=== PATIENT | male | born 1970 | race Caucasian/White ===

== ENCOUNTER 2017-10-25 18:51 | Emergency (ER) | payer SELFPAY ==
[~2017-10-25] VITALS: Ht 185.4 cm; Wt 79.0 kg
[2017-10-25 18:55] VITALS: BP 162/97; PULSE 97; RESP 16; TEMP 100.9; O2SAT 97
[2017-10-25 19:07] VITALS: BP 132/94; PULSE 100; RESP 18; O2SAT 98
--- NOTE | 2017-10-25 19:27 | PD ---
HPI Chief Complaint: Flank/Kidney Pain Time Seen by Provider: 19:19 Travel History International Travel<30 days: No Contact w/Intl Traveler<30days: No Traveled to known affect area: No History of Present Illness HPI This patient complains of a pain in his left side. The small discrete area that sometimes hurts him. He is currently not having pain. There is no pleuritic nature to it. He has had a cough. Denies urinary complaint. No vomiting or diarrhea or abdominal pain. Symptoms severity is mild to moderate. He has low-grade fever. He has had some runny nose and congestion. Duration 3 days. No alleviating factors. No exacerbating factors PFSH Past Medical History Medical History: Denies Significant Hx Diminished Hearing: No Tetanus Vaccination: Unknown Influenza Vaccination: No Past Surgical History Abdominal Surgery: Yes (hernia repair) Appendectomy: Yes Social History Alcohol Use: No Tobacco Use: No Substance Use: No Allergies-Medications (Allergen,Severity, Reaction): Coded Allergies: guaifenesin (Verified Allergy, Severe, trouble breathing, 10/25/17) Reported Meds & Prescriptions Reported Meds & Active Scripts Active No Active Prescriptions or Reported Medications Review of Systems General / Constitutional: Positive: Fever Eyes: No: Visual changes HENT: Positive: Congestion, No: Headaches Cardiovascular: No: Chest Pain or Discomfort Respiratory: Positive: Cough, No: Shortness of Breath Gastrointestinal: No: Abdominal Pain Genitourinary: No: Dysuria Musculoskeletal: Positive: Pain Skin: No Rash Neurologic: No: Weakness Psychiatric: No: Depression Endocrine: No: Polydipsia Hematologic/Lymphatic: No: Easy Bruising Physical Exam Narrative GENERAL: Well-nourished, well-developed patient in no apparent distress. SKIN: Focused skin assessment reveals no rash and nodules. Skin is Warm and dry. HEAD: Atraumatic. Normocephalic. EYES: Pupils equal and round. No scleral icterus. No injection or drainage. ENT: No nasal bleeding or discharge. Mucous membranes pink and moist. NECK: Trachea midline. No JVD. CARDIOVASCULAR: Regular rate and rhythm. No murmur appreciated. RESPIRATORY: No accessory muscle use. Clear to auscultation. Breath sounds equal bilaterally. GASTROINTESTINAL: Abdomen soft, non-tender, nondistended. Hepatic and splenic margins not palpable. MUSCULOSKELETAL: No obvious deformities. No clubbing. No cyanosis. No edema. NEUROLOGICAL: Awake and alert. No obvious cranial nerve deficits. Motor grossly within normal limits. Normal speech. PSYCHIATRIC: Appropriate mood and affect; insight and judgment normal. Data Data Last Documented VS Vital Signs Date Time Temp Pulse Resp B/P (MAP) Pulse Ox O2 Delivery O2 Flow Rate FiO2 10/25/17 19:07 100 18 10/25/17 19:07 132/94 (107) 98 Room Air 10/25/17 18:55 100.9 Orders Orders Urinalysis - C+S If Indicated (10/25/17 19:22) Chest, Single Ap (10/25/17 ) Labs Laboratory Tests Test 10/25/17 20:25 Urine Collection Type CLEAN CATCH Urine Color YELLOW Urine Turbidity CLEAR Urine pH 6.0 Urine Specific [place] 1.033 Urine Protein 30 mg/dL Urine Glucose (UA) NEG mg/dL Urine Ketones 15 mg/dL Urine Occult Blood SMALL Urine Nitrite NEG Urine Bilirubin NEG Urine Leukocyte Esterase NEG Urine WBC 0-2 /hpf Microscopic Urinalysis Comment CULT NOT INDICATED Urine Collection Time 2024 [facility] Medical Decision Making Medical Screen Exam Complete: Yes Emergency Medical Condition: Yes Medical Record Reviewed: Yes Differential Diagnosis Pneumonia,pyelonephritis, flank pain Narrative Course I have reviewed the patient's electronic medical record. Patient symptoms are very fleeting. I don't feel he has a kidney stone. He does have low-grade fever and cough so I ordered a chest x-ray Urinalysis is normal Reviewed his chest x-ray which is normal 2054: Recheck of the patient reveals he is feeling well and is not having pain at this time. Stable for discharge to follow up with . He has low-grade fever but looks clinically well. Diagnosis Primary Impression: Rib pain on left side Additional Impression: Fever Qualified Codes: R50.9 - Fever, unspecified Additional Instructions: The patient was advised to follow up with their physician and return if they worsen. Med/Other Pt SpecificInfo: Other Scripts No Active Prescriptions or Reported Meds Disposition: 01 DISCHARGE HOME Condition: Stable Jd Weber MD Oct 25, 2017 19:27
--- NOTE | 2017-10-25 20:07 | RADRPT ---
EXAM DATE/TIME: 10/25/2017 19:51 [facility] COMPARISON: No previous studies available for comparison. INDICATIONS : Fever. MEDICAL HISTORY : None. SURGICAL HISTORY : None. ENCOUNTER: Initial ACUITY: 1 day PAIN SCORE: 6/10 LOCATION: Bilateral chest FINDINGS: A single view of the chest demonstrates the lungs to be symmetrically aerated without evidence of mas s, infiltrate or effusion. The cardiomediastinal contours are unremarkable. Osseous structures are intact. CONCLUSION: Normal examination for a patient of this age. John Preciado MD on October 25, 2017 at 20:04 Board Certified Radiologist. This report was verified electronically.
[2017-10-25 20:36] LABS: BILIRUBIN, URINE NEG (NEG); BLOOD, URINE SMALL (NEG); GLUCOSE,URINE NEG (NEG); KETONE, URINE 15 mg/dL (NEG); NITRITE,URINE NEG (NEG); URINE LEUKOCYTE ESTERASE NEG (NEG)
[2017-10-25 20:48] LABS: URINE COLOR YELLOW (YELLW/STRAW); WBC, URINE 0-2 /hpf (0-5)
[2017-10-25 20:56] VITALS: BP 126/86; PULSE 88; RESP 18; O2SAT 98
== END 2017-10-25 21:09 | disposition home or self-care (01) ==
LOC: PHED 18:51
DX: R07.81 Pleurodynia (principal); R50.9 Fever, unspecified
CPT/HCPCS: 71045; 81001; 99284